=== PATIENT | female | born 1950 | race Caucasian/White ===

== ENCOUNTER 2021-12-26 15:22 | Emergency (ER) | payer OTHER, SELFPAY ==
--- NOTE | ~2021-12-26 | XR_ITS ---
EXAMINATION: XR chest 2V DATE: 12/26/2021 15:55 INDICATION: Dry cough. TECHNIQUE: Frontal and lateral views of the chest were obtained. COMPARISON: None. FINDINGS: The chest demonstrates clear lungs without pneumonia, pleural effusion, or pneumothorax. Th e heart size is normal. IMPRESSION: 1. No acute cardiopulmonary disease. Reviewed, dictated and finalized at location A.
[2021-12-26 15:28] VITALS: BP 161/65; PULSE 68; RESP 16; TEMP 37.1; O2SAT 100
--- NOTE | 2021-12-26 15:37 | ED.URI ---
HPI - URI/Sore Throat General Chief Complaint: Upper Respiratory Infection Stated Complaint: cough and chest congestion Time Seen by Provider: 12/26/21 15:37 Source: patient Mode of arrival: ambulatory Limitations: no limitations History of Present Illness HPI Narrative: Ms. Alan is a 71-year-old female patient presenting to the clinic today with complaints of cough and chest congestion since November 27. She reports that she was seen initially for cough and sinus pressure and was given a Z-Ron and a Medrol Dosepak and this improved her symptoms for a very short time and it came back and she was seen by our respiratory care provider and was given a prescription for another steroid and Levaquin and she felt really good after this and then 4 days after finishing this treatment she stated it felt the congestion went down into her chest. She reports that since Wednesday she has gradually gotten worse again. She contacted her primary care provider and they recommend she come in for a chest x-ray and further evaluation. MD elicited complaint: cough, nasal congestion and other (Chest congestion) Related Data Home Medications Medication Instructions Recorded Confirmed levothyroxine [Synthroid] 50 mcg PO DAILY 12/26/21 12/26/21 metformin mg 12/26/21 montelukast [Singulair] 10 mg PO DAILY 12/26/21 12/26/21 valsartan-hydrochlorothiazide 1 tablet PO DAILY 12/26/21 12/26/21 Allergies Allergy/AdvReac Type Severity Reaction Status Date / Time No Known Allergies Allergy Verified 12/26/21 15:41 Review of Systems Review of Systems: Pertinent positives per HPI. Patient denies any fever, chills, rash, headache, visual changes, dizziness, cough, shortness of breath, chest pain, palpitations, nausea, vomiting, diarrhea, constipation, abdominal pain, or any urinary issues. PMFSH Comments At the time of my signature, I reviewed and agree with the nursing past medical, surgical, social, and family history. There is no relevant family history pertinent to the patient complaint. Exam Narrative: General: Well-developed, well nourished, in no apparent distress Head: Normocephalic, atraumatic Eyes: Pupils equally round and reactive to light bilaterally, EOM intact, sclera and conjunctive clear, no discharge, lids normal Ears: TMs intact and clear, ear canals clear, no drainage, grossly hearing normal. Nose: Nares patent, clear nasal discharge, mild inflammation, no sinus tenderness. Mouth: Oral pharynx without lesions or masses, good dentition, MMM. Postnasal Neck: Supple, trachea midline, no enlargement of anterior or posterior cervical nodes, no thyroid masses or goiter palpable. Cardio: Regular rate and rhythm, s1 and s2 normal, no murmur appreciated. Resp: Lung sounds mildly tight otherwise clear, nonproductive cough, no rhonchi, rales, wheezing or rubs Course Course Emergency Course: Portions of this record may have been created with voice recognition software. Level of Care: Express Care Visit Vital Signs Vital signs: Vital Signs Temperature 37.1 C 12/26/21 15:28 Pulse Rate 68 12/26/21 15:28 Respiratory Rate 16 12/26/21 15:28 Blood Pressure 161/65 H 12/26/21 15:28 Pulse Oximetry 100 12/26/21 15:28 Temperature 37.1 C 12/26/21 15:28 Pulse Rate 68 12/26/21 15:28 Respiratory Rate 16 12/26/21 15:28 Blood Pressure 161/65 H 12/26/21 15:28 Pulse Oximetry 100 12/26/21 15:28 Vital signs reviewed MDM - URI/Sore Throat MDM Narrative Medical decision making narrative: At the time of visit patient was resting comfortably on the exam table. X-ray was performed and was negative for any pneumonia or acute cardiopulmonary process. I suspect the patient may be having cough with bronchospasm. I will go ahead and give a prescription for another round of prednisone, albuterol inhaler, and some Tessalon Perles. Discussed that she should take Mucinex during the day and take Tessalon Perles at night. She voiced understa
== END 2021-12-26 16:10 | disposition home or self-care (01) ==
PROVIDERS: Emergency Provider Nurse Practitioner Family
DX: J98.01 Acute bronchospasm (principal)
CPT/HCPCS: 71046; 99213; G0463

== ENCOUNTER 2023-06-05 08:59 | Emergency (ER) | payer OTHER, SELFPAY ==
[2023-06-05 09:07] VITALS: BP 143/72; PULSE 77; RESP 18; TEMP 36.6; O2SAT 99
--- NOTE | 2023-06-05 09:40 | ED.LOWEXIN ---
HPI - Extremity Injury (Lower) General Chief Complaint: Extremity Injury, Lower Stated Complaint: Left Hip/Leg/Foot Pain Time Seen by Provider: 06/05/23 09:40 Source: patient Mode of arrival: ambulatory Limitations: no limitations History of Present Illness HPI Narrative: 72-year-old female presented for complaint of left hip pain radiating down to the foot for over 1 week. Patient endorses a history of chronic low back pain, however she states this is different. She endorses occasional tingling with the burning pain sensation. Pain is worse with ambulating, better when sitting. Pain started after a large amount of walking while on a trip, and after the return flight it was worse. Patient has taken aleve, cyclobenzaprine and has been meditating. Denies numbness or weakness of the lower extremities, change in gait, saddle paresthesia or loss of bowel or bladder. Pt scheduled with pcp in1 week. Related Data Home Medications Medication Instructions Recorded Confirmed metformin 500 mg tablet 500 mg PO QID 12/26/21 06/05/23 montelukast 10 mg tablet 10 mg PO DAILY 12/26/21 06/05/23 (Singulair) fluoxetine 10 mg capsule 10 mg PO DAILY 06/05/23 06/05/23 levothyroxine 75 mcg tablet 75 mcg PO QAM 06/05/23 06/05/23 (Synthroid) linaclotide 72 mcg capsule 72 mcg PO DAILY 06/05/23 06/05/23 (Linzess) liothyronine 5 mcg tablet 10 mcg PO BID 06/05/23 06/05/23 valsartan 160 1 tablet PO DAILY 06/05/23 06/05/23 mg-hydrochlorothiazide 12.5 mg tablet Allergies Allergy/AdvReac Type Severity Reaction Status Date / Time prochlorperazine Allergy Unknown Unknown Verified 06/05/23 09:47 [From Compazine] Review of Systems Review of Systems: CONSTITUTIONAL: Denies body aches, fever, chills EYES: Denies visual changes CARDIOVASCULAR: Denies chest pain, palpitations, or edema. RESPIRATORY: Denies cough or dyspnea. GASTROINTESTINAL: Denies abdominal pain, nausea, vomiting, or diarrhea. SKIN: Denies rash, itching, or wounds. MUSCULOSKELETAL: reports Left hip/leg pain NEUROLOGIC: Denies headache, numbness, tingling, or weakness. All systems reviewed & are unremarkable except as noted in HPI and below PMFSH Past Medical History Medical History (Updated 06/05/23 @ 10:20 by Bozena Morrow APRN) HTN (hypertension) Hypothyroid Surgical History Surgical History (Updated 06/05/23 @ 10:20 by Bozena Morrow APRN) History of back surgery Comments At time of signature, I have reviewed and agree with nursing past medical, surgical, social and family history unless otherwise noted. Please see nursing chart for further information. There is no relevant family history pertinent to the presenting complaint Exam Narrative: GENERAL: Well-appearing, well-nourished, and in no acute distress. HEAD: Normocephalic, atraumatic. EYES: conjunctivae clear NECK: Supple. full ROM CHEST: Speaks in full sentences. No respiratory distress. HEART: Regular rate and rhythm. Normal and equal peripheral pulses. MUSC: Left posterior hip tenderness c/w piriformis pain. No Vertebral point tenderness. BLEs with normal strength and sensation, normal range of motion but endorses pain with walking. Left ankle chronic swelling 1+. No calf pain/tenderness. Neg Homans. No rash, erythema, or ecchymosis, No open wounds, or obvious deformity; alignment normal, pulse palpable and equal bilaterally, skin warm, dry, pink. Capillary refill less than 3 seconds. Gait slow, steady. SKIN: Warm, dry, no rash. NEURO: Alert and oriented x3. Course Course Emergency Course: Patient is aware of diagnosis, understands and agrees to treatment plan. Anticipatory guidance given. Patient agrees to follow-up as directed and is aware of reasons to seek care at the emergency department. Portions of this record may have been created with voice recognition software Level of Care: Express Care Visit Vital Signs Vital signs: Vital Signs Temperature 97.8 F
== END 2023-06-05 09:58 | disposition home or self-care (01) ==
PROVIDERS: Emergency Provider Nurse Practitioner Family
DX: M54.16 Radiculopathy, lumbar region (principal); I10 Essential (primary) hypertension; E03.9 Hypothyroidism, unspecified
CPT/HCPCS: 99213; G0463

== ENCOUNTER 2023-12-29 15:18 | Emergency (ER) | payer OTHER, SELFPAY ==
--- NOTE | ~2023-12-29 | XR_ITS ---
XR chest 2V DATE: 12/29/2023 15:54 INDICATION: Cough for one month. Smoker exposure. Decreased pO2. TECHNIQUE: 2 views COMPARISON: None FINDINGS: Moderate bilateral hyperinflation. No pulmonary infiltrate or consolidation, pleural effusi on or pulmonary vascular congestion or pneumothorax. Normal heart size. No hilar or mediastinal enlar gement. IMPRESSION: Moderate hyperinflation; no active cardiopulmonary disease Reviewed, dictated and finalized at location B.
[2023-12-29 15:24] VITALS: BP 157/79; PULSE 67; RESP 16; TEMP 36.6; O2SAT 98
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
== END 2023-12-29 16:12 | disposition home or self-care (01) ==
PROVIDERS: Emergency Provider Nurse Practitioner
DX: L29.2 Pruritus vulvae (principal); R91.8 Other nonspecific abnormal finding of lung field; I10 Essential (primary) hypertension; E03.9 Hypothyroidism, unspecified
CPT/HCPCS: 71046; 81003; 99213; G0463